=== PATIENT | male | born 1950 | race Caucasian/White ===

== ENCOUNTER 2018-02-20 20:07 | Emergency (ER) | payer MEDICARE ==
[~2018-02-20] VITALS: Ht 170.2 cm; Wt 68.0 kg
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
[2018-02-20] MEDS ORDERED: ACETAMINOPHEN 650 MG/20.3 ML UDC PO ONE (21:00)
--- NOTE | 2018-02-20 21:12 | NUR ---
PT TO CT.
[2018-02-20] MEDS ORDERED: ACETAMINOPHEN 650 MG/20.3 ML UDC ONE (21:27)
[2018-02-20 22:23] VITALS: BP 138/86
--- NOTE | 2018-02-20 22:32 | NUR ---
NIGEL STALLWORTH: C-SPINE CLEARED.
== END 2018-02-20 22:32 | disposition home or self-care (01) ==
LOC: ER 20:07
DX: S06.0X0A Concussion without loss of consciousness, initial encounter (principal); R51 Headache; M54.2 Cervicalgia; M25.512 Pain in left shoulder; R07.81 Pleurodynia; M25.551 Pain in right hip; M62.838 Other muscle spasm; I10 Essential (primary) hypertension; J45.909 Unspecified asthma, uncomplicated; Z98.890 Other specified postprocedural states; V49.49XA Driver injured in collision with other motor vehicles in traffic accident, initial encounter; Y93.89 Activity, other specified; Y92.410 Unspecified street and highway as the place of occurrence of the external cause; Y99.8 Other external cause status
CPT/HCPCS: 70450; 71111; 72125; 73030; 73502; 99284; A4606; L0172; Z7610